=== PATIENT | female | born 1940 | race Caucasian/White ===

== ENCOUNTER 2022-11-26 03:29 | Emergency (ER) | payer OTHER ==
[2022-11-26 03:40] VITALS: BP 121/91; PULSE 62; RESP 17; TEMP 96.8; BMI 20.1
[2022-11-26] MEDS ORDERED: DIPHTH,PERTUSS(ACELL),TET 0.5 ML DISP.SYRIN IM ONE ×2 (04:12→04:46)
== END 2022-11-26 06:08 | disposition home or self-care (01) ==
LOC: JER 03:29
PROC: 3E0234Z Introduction of Serum, Toxoid and Vaccine into Muscle, Percutaneous Approach (ICD-10-PCS; principal; 2022-11-26)
DX: S00.03XA Contusion of scalp, initial encounter (principal); S50.02XA Contusion of left elbow, initial encounter; W06.XXXA Fall from bed, initial encounter
CPT/HCPCS: 70450-TC; 72125-TC; 90471; 90715; 99284-25